=== PATIENT | male | born 1990 | race Caucasian/White ===

== ENCOUNTER 2022-03-29 13:02 | Emergency (ER) | payer BC, OTHER ==
[~2022-03-29] VITALS: Ht 180.3 cm; Wt 95.3 kg
[2022-03-29 13:03] VITALS: BP 111/55
[2022-03-29] MEDS ORDERED: FLUORESCEIN SODIUM 1 STRIP STRIP ONE (14:43)
[2022-03-29] MEDS ORDERED: TETANUS/DIPHTHERIA TOXOID [ADULT] 0.5 ML VIAL IM ONE (15:00)
[2022-03-29] MEDS ORDERED: FLUORESCEIN SODIUM 1 STRIP STRIP OP SCH (15:00)
[2022-03-29] MEDS ORDERED: GENTAMICIN SULFATE 0.3% 5ML DROPS OS SCH (15:00)
== END 2022-03-29 15:46 | disposition home or self-care (01) ==
LOC: EDH 13:02
DX: S05.02XA Injury of conjunctiva and corneal abrasion without foreign body, left eye, initial encounter (principal); Z98.890 Other specified postprocedural states; W22.8XXA Striking against or struck by other objects, initial encounter; Y93.89 Activity, other specified; Y92.89 Other specified places as the place of occurrence of the external cause; Y99.8 Other external cause status
CPT/HCPCS: 90471; 90714